=== PATIENT | male | born 1990 | race Caucasian/White ===

== ENCOUNTER → 2023-07-21 | Outpatient (CLI) | payer OTHER | LOC: M CARPUL 15:01 | PROVIDERS: ATTEND Physician Assistant | DX: R07.89 Other chest pain (principal) ==

== ENCOUNTER 2024-09-14 07:38 | Inpatient (IN) | payer OTHER ==
[~2024-09-14] VITALS: Ht 172.7 cm; Wt 75.4 kg
[2024-09-14] MEDS ORDERED: CIAL5TAB PO (16:01)
[2024-09-14] MEDS ORDERED: HOME MED LIST COMPLETE! XX SCH (16:05)
[2024-09-15] MEDS: NICOTINE 14 MG/24 HR TRANSDERMAL TD ONE (08:10)
[2024-09-15] MEDS ORDERED: MOM 30ML SUSPENSION UDC PO PRN (18:15)
[2024-09-15] MEDS ORDERED: diphenhydrAMINE 25MG CAP PO PRN (18:15)
[2024-09-15] MEDS ORDERED: IBUPROFEN 400MG TAB PO PRN (18:15)
[2024-09-15] MEDS ORDERED: MAALOX 30 ML SUSP *UDC PO PRN (18:15)
[2024-09-15] MEDS ORDERED: traZODone 50 MG TAB PO PRN (18:15)
[2024-09-15] MEDS ORDERED: ACETAMINOPHEN 325 MG TAB PO PRN (18:15)
[2024-09-15 21:36] VITALS: BP 119/74; TEMP 97.6; O2SAT 98
[2024-09-16 06:40] VITALS: BP 146/82; TEMP 97; O2SAT 98
[2024-09-16] MEDS ORDERED: NICOTINE POLACRILEX 2 MG GUM PO PRN (13:50)
[2024-09-16 15:42] VITALS: BP 106/58; TEMP 98.1; O2SAT 96
[2024-09-16] MEDS: NICOTINE 14 MG/24 HR TRANSDERMAL TD PRN (21:19)
[2024-09-17 06:29] VITALS: BP 136/68; TEMP 97.7; O2SAT 98
[2024-09-17 15:46] VITALS: BP 116/56; TEMP 97.9; O2SAT 97
[2024-09-18 06:42] VITALS: BP 112/58; TEMP 97.7; O2SAT 99
== END 2024-09-18 12:02 | disposition home or self-care (01) | DRG 880 ==
LOC: M ED 07:38 → M ED INP 09-15 18:12 → M PSY 09-15 21:32
PROVIDERS: ADMIT Student in an Organized Health Care Education/Training Program; ATTEND Student in an Organized Health Care Education/Training Program
DX: F41.9 Anxiety disorder, unspecified (principal); R45.851 Suicidal ideations; F39 Unspecified mood [affective] disorder; Z91.82 Personal history of military deployment; F17.200 Nicotine dependence, unspecified, uncomplicated